=== PATIENT | female | born 1985 | race Caucasian/White ===

== ENCOUNTER 2019-05-22 21:00 | Emergency (ER) | payer OTHER ==
[~2019-05-22] VITALS: Ht 160 cm; Wt 49.5 kg
[2019-05-22] MEDS ORDERED: ZOFRAN4 MG PO (21:09)
[2019-05-22 21:34] LABS: URINE BILIRUBIN NEGATIVE (Negative); URINE BLOOD 1+ (Negative); URINE CLARITY CLOUDY; URINE COLOR YELLOW; URINE GLUCOSE-RANDOM* NEGATIVE (Negative); URINE KETONES NEGATIVE (Negative); URINE LEUKOCYTES-REFLEX NEGATIVE (Negative); URINE NITRITE-REFLEX NEGATIVE (Negative); URINE PROTEIN (DIPSTICK) NEGATIVE (Negative); URINE SPECIFIC GRAVITY 1.015 (1.005-1.035); URINE UROBILINOGEN 0.2 E.U./dl (0.2-1.0)
[2019-05-22 21:49] LABS: ABSOLUTE NEUTROPHILS 8.3 thou/uL (1.4-8.2); BASOPHILS 0.7 % (0.0-2.0); EOSINOPHILS 1.1 % (0.0-3.0); HEMATOCRIT 41.5 % (37.0-47.0); HEMOGLOBIN 13.8 gm/dL (12.0-15.0); LYMPHOCYTES 24.5 % (24.0-44.0); MCH 31.7 pg (26.0-34.0); MCHC 33.2 g/dL (28.0-37.0); MCV 95.5 fL (80.0-100.0); MONOCYTES 5.8 % (1.0-8.0); PLATELET COUNT 286 thou/uL (150-400); POLYS 67.9 % (36.0-66.0); RBC 4.35 mil/uL (4.20-5.00); RDW 13.2 % (10.5-14.5); WBC 12.2 thou/uL (4.0-11.0)
[2019-05-22 21:51] LABS: AMORPHOUS URATES Moderate /LPF (None Seen); BACTERIA-REFLEX 1-9 Few /HPF (None Seen); CASTS None Seen /LPF (None Seen); MUCUS 0-3 Light strn/LPF (None Seen); SQUAMOUS 0-3 Few /LPF (0-3); URINE RBC 0-2 Rare /HPF (0-2); URINE WBC-REFLEX None Seen /HPF (0-5)
[2019-05-22 21:54] LABS: ANION GAP 10 mmol/L (7-16); BUN 6 mg/dL (7-18); CALCIUM 9.3 mg/dL (8.5-10.1); CHLORIDE 105 mmol/L (98-107); CO2 26 mmol/L (21-32); CREATININE 0.6 mg/dL (0.6-1.0); GLUCOSE 95 mg/dL (74-106); POTASSIUM 3.7 mmol/L (3.5-5.1); SODIUM 141 mmol/L (136-145)
[2019-05-22 22:01] LABS: ALBUMIN 3.9 g/dL (3.4-5.0); DIRECT BILIRUBIN < 0.1 mg/dL (<0.1-0.3); LIPASE 58 U/L (73-393); SGOT 11 U/L (15-37); SGPT 14 U/L (30-65); TOTAL BILIRUBIN 0.3 mg/dL (<0.1-1.0); TOTAL PROTEIN 6.7 g/dL (6.4-8.2)
[2019-05-22 22:35] VITALS: BP 93/60
--- NOTE | 2019-05-23 10:06 | EKG ---
[place] [address] [place] [address] ELECTROCARDIOGRAM REPORT Name: TINGVIVI Bingham [id number] Admission: 05/22/19 Attend Phys: Discharge: 05/22/19 Date of : 83 Report #: [id number] THIS REPORT FOR: //name// [facility] [place], [place] ED Test Date: 2019-05-22 Test Time: 21:07:32 Pat Name: VIVI MAGUIRE Department: Room: Gender: F Professor Of Biology: [facility]NERSCHERYL : 1985 Requested By: Maikel Still Order Number: [id number] MD: Ashvin Hill Measurements Intervals [place] Rate: 68 P: 2 [place]: 123 QRS: 60 QRSD: 84 T: 59 QT: 378 QTc: 402 Interpretive Statements Sinus rhythm RSR' in V1 or V2, probably normal variant No previous ECG available for comparison Electronically Signed On 05-23-2019 10:06:11 [employer] by Ashvin Hill [email or web address] <ELECTRONICALLY SIGNED> By: Ashvin Hill MD, [facility] 05/23/19 [id number] Ashvin Hill MD, FACC /EPI
== END 2019-05-22 22:37 | disposition home or self-care (01) ==
LOC: ER 21:00
PROVIDERS: Emergency Medicine
DX: R11.2 Nausea with vomiting, unspecified (principal); R19.7 Diarrhea, unspecified; R10.11 Right upper quadrant pain; R10.31 Right lower quadrant pain; F17.210 Nicotine dependence, cigarettes, uncomplicated; Z90.49 Acquired absence of other specified parts of digestive tract; Z98.51 Tubal ligation status